=== PATIENT | female | born 1940 | race Caucasian/White ===

== ENCOUNTER 2024-10-15 06:43 | Inpatient (IN) | payer OTHER, SELFPAY ==
[2024-10-15] VITALS (13 sets, daily range): BP systolic 99–147; BP diastolic 49–102; BMI 25.8
[2024-10-15 00:42] LABS: % Basophils 0.7 % (0-2); % Eosinophils 1.8 % (0-6); % Immature Granulocytes 1.7 % (0-0.5); % Lymphocytes 12.1 % (20.5-51.1); % Monocytes 4.7 % (1.7-9.3); Absolute Basophils 0.1 10^3/uL (0-0.2); Absolute Eosinophils 0.2 10^3/uL (0-0.7); Absolute Immature Granulocytes 0.2 10^3/uL (0-0.05); Absolute Lymphocytes 1.5 10^3/uL (1.2-3.4); Absolute Monocytes 0.6 10^3/uL (0.1-0.6); Absolute Neutrophils 9.5 10^3/uL (1.4-6.5); Hematocrit 33.8 % (37.0-47.0); Hemoglobin 10.5 g/dL (12.0-16.0); Mean Corp Hgb Conc. 31.1 g/dL (33.0-37.0); Mean Corpuscular Hgb 23.5 pg (27.0-31.0); Mean Corpuscular Volume 75.8 fL (81.0-99.0); Mean Platelet Volume 10.7 fL (7.4-10.4); Nucleated Red Blood Cells % 0 %; Platelet Count 289 10^3/uL (130-400); Red Blood Cell Count 4.46 10^6/uL (4.20-5.40); Red Cell Dist. Width 15.3 % (11.5-14.5); White Blood Cell Count 12.1 10^3/uL (4.8-10.8)
[2024-10-15 00:49] LABS: ALT (SGPT) 46 U/L (0-35); AST (SGOT) 140 U/L (14-36); Albumin 4.3 g/dl (3.5-5.0); Alkaline Phosphatase 126 U/L (38-126); Blood Urea Nitrogen 20 mg/dl (7-17); Calcium 9.2 mg/dl (8.4-10.2); Carbon Dioxide 29 mmol/L (22-30); Chloride 100 mmol/L (98-107); Glucose 177 mg/dl (70-99); Potassium 3.8 mmol/L (3.5-5.1); Sodium 138 mmol/L (135-145); Total Bilirubin 0.8 mg/dl (0.2-1.3); Total Protein 6.7 g/dl (6.3-8.2); eGFR > 60.00
[2024-10-15 01:00] LABS: Troponin I < 0.012 ng/ml
[2024-10-15 01:09] LABS: Lipase > 4000 U/L (23-300)
[2024-10-15 04:48] LABS: Alcohol None Detected
--- NOTE | 2024-10-15 04:51 | ED.GENMED ---
History of Present Illness
General
Chief Complaint: Abdominal Pain
Source: patient and family (Daughter at bedside and provides most of the history.)
Exam Limitations: none
Time Seen by Provider: 10/15/24 04:26
Nursing documentation reviewed up to this point in time: agreed with
History of Present Illness
History of Present Illness:
This is an 83-year-old woman who has history of hypertension, hyperlipidemia, CAD, dementia, chronic hearing impairment, remote history of ovarian CA. 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
She has been suffering with several month history of intermittent epigastric abdominal pain and daughter states she has been taking her mother to principal systems architect, concern for cardiac issue which has not been found.
Patient complains of epigastric discomfort this evening, poor oral intake throughout the day yesterday and pain worsened tonight, associated with nausea, unrelieved with Zofran, Pepto-Bismol as well as Tums.
She has not had a fever nor chills. She has had nausea with intermittent dry heaves, no hematemesis.
No diarrhea nor constipation.
No chest pain or cough nor shortness of breath.
Past History
Past History
ED Past Medical History: HTN, Hypercholesterolemia, [place], Psychiatric (Anxiety/depression) and Other (Ovarian cancer with hysterectomy 2000)
ED Past Surgical History: None, Cardiac (12/2021) and Gynecological
Patient has exhibited threatening behavior?: No
PSI?: No
Social History
Tobacco: Non-smoker
Alcohol: Former
Drug: None
Personal:
Living: with family (Resides with her daughter)
Employment: Retired
Family History
Family History: Other (No significant)
Phy Exam
Physical Exam
Physical Exam:
GENERAL: 83-year-old woman appears her stated age, awake and alert, pleasant, moderately hard of hearing. Cooperative.
EYE: pupils equal and reactive. anicteric
NECK: Supple, nontender, no meningismus, no significant adenopathy.
ENT: oral mucosa is moist. No rhinorrhea.
CARDIAC: Regular rate and rhythm. no murmur.
LUNGS: Clear breath sounds bilaterally, no acute respiratory distress, no wheezes/rales/rhonchi
ABDOMEN: Soft, nondistended, moderate tenderness epigastric as well as right upper quadrant, no r/g, no cvat. normoactive BS.
NEUROLOGICAL: Alert and oriented x3, no focal neuro deficits.
SKIN: Warm and dry, normal color, skin intact. No rash.
MUSCULOSKELETAL: No C/C/E. peripheral pulses are full and equal b/l. No palpable tenderness.
PSYCH: Normal and appropriate interaction.
Course
Orders/Labs/Results
Orders:
Orders
10/15/24 00:11
Electrocardiogram (*1) Urgent
Reason for Study: Chest Pain
EKG- Treatment ONCE
10/15/24 00:29
Alcohol Urgent
Complete Blood Count/With Diff Urgent
Comprehensive Metabolic Panel Urgent
Lipase Urgent
Troponin I Urgent
10/15/24 04:04
Add On- LAB Urgent
Tests Added?: alochol
10/15/24 04:27
US Abdomen Complete/Upper Urgent
Comment:
Reason For Exam: upper abd pain, elevated LFT's lipase
10/15/24 04:34
0.9% Sodium Chloride 1000 ml [Nss] 1,000 ml IV 500 mls/hr
HYDROmorphone [Dilaudid] 0.25 mg IV NOW STA
Ondansetron Injectable [Zofran] 4 mg IV NOW STA
Pantoprazole [Protonix IV] 40 mg IV NOW STA
10/15/24 04:57
Metoclopramide [Reglan] 5 mg IV NOW STA
10/15/24 05:47
CefoTEtan [Cefotan] 2,000 mg IV NOW STA
Abnormal Lab Results
12/23/24
00:29
WBC 12.1 H 10^3/uL
(4.8-10.8)
Hgb 10.5 L g/dL
(12.0-16.0)
Hct 33.8 L %
(37.0-47.0)
MCV 75.8 L fL
(81.0-99.0)
MCH 23.5 L pg
(27.0-31.0)
MCHC 31.1 L g/dL
(33.0-37.0)
RDW 15.3 H %
(11.5-14.5)
MPV 10.7 H fL
(7.4-10.4)
Abs Immat Gran (auto) 0.2 H 10^3/uL
(0-0.05)
Absolute Neuts (auto) 9.5 H 10^3/uL
(1.4-6.5)
Immature Gran % 1.7 H %
(0-0.5)
Neutrophils % 79.0 H %
(42.2-75.2)
Lymphocytes % 12.1 L %
(20.5-51.1)
BUN 20 H mg/dl
(7-17)
Glucose 177 H mg/dl
(70-99)
AST 140 H U/L
(14-36)
ALT 46 H U/L
(0-35)
Lipase > 4000 H* U/L
(23-300)
10/15/24 00:29
10/15/24 00:29
Vital Signs
Initial and Last Documented VS:
Initial Vital Signs
Temp Pulse Resp BP Pulse Ox
97.4 F 67 18 147/77 98
10/15/24 00:20 10/15/24 00:20 10/15/24 00:20 10/15/24 00:20 10/15/24 00:20
Last Documented Vital Signs
Temp Pulse Resp BP Pulse Ox
97.4 F 67 18 147/77 98
10/15/24 00:20 10/15/24 00:20 10/15/24 00:20 10/15/24 00:20 10/15/24 00:20
MDM/Problems Addressed
Differential Diagnosis Includes:
Concern for acute cholecystitis, pancreatitis, gastritis, biliary colic, diverticulitis. ACS is also a consideration.
Labs are remarkable for mildly elevated LFTs and significantly elevated lipase greater than 4000 consistent with acute pancreatitis. Concern for gallstone pancreatitis.
Both patient and daughter reiterate that she has had no alcohol. No recent change in medications.
Will initiate IV fluids, IV pain medication and antiemetics.
Will check abdominal ultrasound assess for potential cholecystitis.
Will admit to hospitalist service.
Chronic conditions affecting care: HTN and CAD
*Radiology
Radiology exam reviewed: radiology read reviewed (Ultrasound shows enlarged and mildly heterogenous appearance of the pancreas consistent with acute pancreatitis. Gallbladder contains numerous small gallstones in its neck which appear nonmobile.
No significant gallbladder wall thickening nor pericholecystic fluid.)
*Pulse Oximetry
Patient hypoxic: no
*EKG
Interpreted by ED Provider?: Yes
Interpretation: abnormal
Rate: bradycardiac
Rhythm: sinus
[place]: normal axis
Interval: long QT
QRS Pattern: normal QRS
Ischemia: non-specific ST changes
*Interactive Web Developer Interpretation
Rate: bradycardiac
Interpretation: abnormal
Rhythm: sinus
*Critical Care Note
Total Time (30-74mins, 75-104mins- exclusive of procedures): Not Applicable
Update Note
Update Note:
05:45
Ultrasound shows numerous gallstones within the gallbladder, no definitive evidence on ultrasound of cholecystitis.
I suspect gallstone pancreatitis.
Will initiate IV antibiotics for coverage of potential cholecystitis.
Admit to hospitalist service.
ED Attending Note
-
Portions of this chart may have been created with voice recognition software.� Occasional wrong word or��sound alike� substitutions may have occurred due to the inherent limitations of voice recognition software.
Discharge Plan
Departure
Patient Disposition: Admit
Date of Disposition: 10/15/24
Time of Disposition: 05:00
Admit to: Med/Surg
Admit to doctor: Mavis
Presentation/result/management discussed w/ accepting MD/DO: Hospitalist
Condition: Fair
Discharge Problem:
Acute pancreatitis
Prescriptions:
No Action
duloxetine 20 MG capsule,delayed release(DR/EC)
20 mg PO DAILY
Vitamin D3
atorvastatin 40 MG tablet
40 mg PO QPM Qty: 30 3RF
clopidogrel 75 MG tablet
75 mg PO DAILY Qty: 30 3RF
pantoprazole 40 MG tablet,delayed release (DR/EC)
40 mg PO DAILY Qty: 30 3RF
losartan 25 MG tablet
25 mg PO DAILY Qty: 30 3RF
docusate sodium 100 MG capsule
100 mg PO BID Qty: 60 0RF
Rx Instructions:
over the counter for constipation.
furosemide 20 MG tablet
20 mg PO DAILY Qty: 30 3RF
metoprolol succinate 12.5 MG tablet extended release 24 hr
12.5 mg PO DAILY Qty: 30 3RF
rivaroxaban [Xarelto] 20 MG tablet
20 mg PO QPM Qty: 30 3RF
molnupiravir 200 mg capsule
800 mg PO Q12H 5 Days Qty: 40 0RF
molnupiravir 200 mg capsule
800 mg PO Q12H 5 Days Qty: 40 0RF
cefdinir 300 mg capsule
300 mg PO BID Qty: 10 1RF
molnupiravir 200 mg capsule
800 mg PO Q12H 5 Days Qty: 40 0RF
sulfamethoxazole-trimethoprim [Bactrim DS] 800-160 mg tablet
1 tab PO BID 7 Days Qty: 14 0RF
doxycycline hyclate 100 mg capsule
100 mg PO BID 7 Days Qty: 14 0RF
mupirocin 2 % ointment
1 applic topical TID 7 Days Qty: 22 0RF
Referrals:
Michael Hernandes MD [Family Provider] -
Interventions
Interventions:
*Risk Screen - Suicide Last Done: 10/15/24 00:17
*General Assessment Last Done: 10/15/24 03:58
*ED COVID-19 Vaccine History Last Done: 10/15/24 00:17
Discharge Date and Time
Print Language: PORTUGUESE
[2024-10-15] MEDS: PROTONIX IV 40 MG IV (05:38)
[2024-10-15] MEDS: DILAUDID 0.25 MG IV (05:38)
[2024-10-15] MEDS: REGLAN 5 MG IV (05:38)
[2024-10-15] MEDS: NSS 1000 IV (05:45)
--- NOTE | 2024-10-15 06:11 | HPS.HSE ---
Family Physician
-
Family Physician: Michael Hernandes MD
Chief Complaint
-
Epigastric abdominal pain
History of Present Illness
This is an 83-year-old female who has a past medical history significant for Alzheimer's dementia, ischemic cardiomyopathy status post LV thrombus, hypertension, hyperlipidemia, presents to the emergency department with worsening epigastric
abdominal pain which has been intermittent for some time now.
She reports several month history of intermittent epigastric abdominal pain, daughter reports that the patient had been taken to the reefer truck driver to evaluate for cardiac issues which has been negative. She reports worsening epigastric discomfort
this evening decreased oral intake throughout the day. The pain is associated with nausea. Unrelieved with Zofran or Pepto-Bismol. She denies any fevers or chills. She denies any melena or hematochezia. She has not had any diarrhea,
lightheadedness or dizziness. She denies any chest pain or shortness of breath.
On arrival in the emergency department she was hemodynamically stable with a blood pressure of 144/76 pulse of 98 and oxygen saturation of 90% on room air. She is afebrile. She had leukocytosis of 12,000 but otherwise hemoglobin and platelet
counts were similar to prior and stable. Electrolytes BUN/creatinine were within the normal range. LFTs shows a mild elevation in ALT and AST. T. bili Kurtis and alk phos were negative. Lipase was elevated over 4000.
Abdominal ultrasound showed enlarged and mildly heterogeneous echogenic appearance of the pancreas consistent with acute pancreatitis, there were numerous small gallstones in the gallbladder neck which appeared normal bowel. No significant
gallbladder wall thickening or pericholecystic fluid. Negative sonographic Chavez sign. CBD measures 5.5 mm
Medical History
Past Medical History
Past Medical History: Reports CAD, Cancer (Ovarian cancer status post hysterectomy), CHF, HTN and Hypercholesterolemia
Additional Past Medical History:
Status post LV thrombus on anticoagulation
Past Surgical History: Reports Gynocological
Social History
Tobacco: Non-smoker
Alcohol: Former
Drug: None
Personal:
Living: With Family
Employment: Retired
Family History
Family History: Not pertinent
Allergies / Home Medications
Allergies reflects when Allergies were last updated in [facility].
Home Medications with original date entered in [facility]
Allergy/Medication List:
Allergies
Allergy/AdvReac Type Severity Reaction Status Date / Time
No Known Allergies Allergy Verified 10/19/23 10:50
Home Medications
Vitamin D3 Supplement 01/17/22
duloxetine 30 mg capsule,delayed release 30 mg PO DAILY Mental Health/Anxiety 01/17/22
atorvastatin 20 mg tablet 20 mg PO QPM #30 tabs 01/19/22
docusate sodium 100 mg capsule 100 mg PO BID #60 caps 01/19/22
furosemide 20 mg tablet 20 mg PO DAILY #30 tabs 01/19/22
losartan 25 mg tablet 25 mg PO DAILY #30 tabs 01/19/22
metoprolol succinate 25 mg tablet,extended release 24 hr 12.5 mg (1/2 x 25 mg) PO DAILY ##30 01/19/22
pantoprazole 40 mg tablet,delayed release 40 mg PO DAILY #30 tabs 01/19/22
rivaroxaban 20 mg tablet (Xarelto) 20 mg PO QPM #30 tabs 01/19/22
Review of Systems
-
Unable to obtain full review of systems at this time due to: Dementia
History Source: Family
Constitutional: Reports No Symptoms
Respiratory: Reports No Symptoms
Cardiac: Reports No Symptoms
Abdomen/GI: Reports Abdominal Pain and Nausea
: Reports No Symptoms
Musculoskeletal: Reports No Symptoms
Skin: Reports No Symptoms
Neurological: Reports No Symptoms
Endocrine: Reports No Symptoms
Hematologic/Lymphatic: Reports No Symptoms
Psych: Reports No Symptoms
Physical Exam
Vital Signs
Vital Signs
Temp Pulse Resp BP Pulse Ox
97.4 F 98 24 144/76 93
10/15/24 00:20 10/15/24 04:16 10/15/24 04:16 10/15/24 05:04 10/15/24 05:05
Physical Exam
General: Well Developed, Well Nourished and Comfortable
HEENT: NormoCephalic, Anicteric, Moist mucous membranes and Atraumatic
Respiratory: Clear
Cardiac: S1/S2 and Regular Rhythm
Breast: Deferred by me
GI: Soft, Non Distended, Normal Bowel Sounds and Tender
Rectal: Deferred by Provider
Genito-urinary: Deferred by me
Musculoskeletal: No Clubbing, No Cyanosis and No Edema
Skin: Warm
Neuro: Awake, Alert and Oriented (oriented to person )
Hematologic/Lymphatic: No Lymphadenopathy
Psych: Apparent Dementia
Laboratory Results
-
10/15/24 00:29
10/15/24 00:29
Laboratory Results
Total Bilirubin 0.8 mg/dl (0.2-1.3) 10/15/24 00:29
AST 140 U/L (14-36) H 10/15/24 00:29
ALT 46 U/L (0-35) H 10/15/24 00:29
Alkaline Phosphatase 126 U/L (38-126) 10/15/24 00:29
Troponin I < 0.012 ng/ml 10/15/24 00:29
Lipase > 4000 U/L (23-300) H* 10/15/24 00:29
Data Reviewed
-
Ultrasound: Report Reviewed by me
Lab Data: Labs Reviewed by me
Old Records: Reviewed
Impression/Plan
-
IMPRESSION:
83-year-old who has a past medical history significant for ischemic adenopathy, EF of around 50% status post LV thrombus sign on anticoagulation indefinitely will presents to the emergency department with intermittent colicky abdominal pain that
developed into a more severe epigastric pain with nausea and radiation to the back today. She is found to have acute pancreatitis with a lipase of over 4000. A right upper quadrant ultrasound shows numerous small stones in the gallbladder
localized was the neck of the gallbladder. The gallbladder itself does not appear inflamed and has no signs of acute cholecystitis. No gallstones in the biliary duct and CBD was 5 mm. Mild transaminitis. Normal bilirubin.
PLAN:
1. Pancreatitis - Gall stone pancreatitis. No h/o ETOH recently
- admit to med/surg
- npo for now
- gentle fluids, pain control and antimetics
- trend lfts to eval for continued biliary obstruction
- no abx as no cholecystitis or cholangitis
- GI consultation. Patient would require surgery for definitive tx but cannot rule out cbd stones now. Appreciate GI input
- General surgery consult.
2. CHF - Patient with improved EF on last echo. No signs of volume overload
- hold daily lasix for no w
- continue metoprolol and losartan
- monitor daily weights
3. LV thrombus - appears result on most recent echo but requires indefinite prophylaxis
- hold Xarelto pending surgical evaluation
- asa 81 for now
4. Dementia - No acute delirium
- continue memantine
DVT PPX - hep sq pending surgical evaluation
Code status - full code per daughter who is care technician
[2024-10-15] MEDS: CEFOTAN 2000 MG IV (06:14)
[2024-10-15] MEDS: XANAX 0.25 MG PO (06:53)
[2024-10-15] MEDS: NAMENDA 10 MG PO (08:43)
[2024-10-15] MEDS: LOW STRENGTH ASPIRIN 81 MG PO (08:46)
--- NOTE | 2024-10-15 08:54 | PHANOTE ---
med rec note- patient unable to answer question, very confused and does not know where she is. called daughter on file and she gave me med list. she also informed me that on 10/10/24 was suppose to stop aspirin 81mg daily and Lasix . and to start
Plavix 75mg daily but daughter has not made those changes to patient meds, daughter said she was going to wait a week
[2024-10-15] MEDS: LR 1000 IV (09:00)
--- NOTE | 2024-10-15 09:07 | W.PN.HOSP.TC ---
Addendum entered and electronically signed by Seng Cote MD 10/15/24 09:34:
Chronic microcytic anemia.
Hemoglobin 10.5
Check iron levels.
Original Note:
Today's Communication/Plan
-
See plan
Assessment / Plan
Assessment / Plan
Impression:
Presentation with abdominal pain.
Acute gallstone pancreatitis.
Other conditions:
CAD with history of non-STEMI and PCI to LAD 12/2021
Ischemic cardiomyopathy with recovered LVEF
Essential hypertension.
Dyslipidemia
Nonsustained ventricular tachycardia.
Dementia Alzheimer type
Anxiety
Plan:
Presentation with abdominal pain.
Suspect acute gallstone pancreatitis.
Afebrile with benign abdominal examination.
Ultrasound of the abdomen: Cholelithiasis without convincing sonographic evidence of acute cholecystitis. Nonspecific sonographic appearance of the pancreas which could reflect underlying acute pancreatitis.
Normal bilirubin with mild elevation of transaminases
N.p.o. open
IV fluids with monitoring volume status closely given prior history of cardiomyopathy.
GI/general surgery consultation
Require additional imaging CT scan versus MRI.
So far no clear evidence of choledocholithiasis or acute cholecystitis. Received dose of Cefotan while in ED. Monitor closely off antibiotics, low threshold if any signs of infection.
Continue IV PPI
Adjust analgesia: Hydromorphone 0.25 mg IV every 3 hours as needed.
CAD.
History of non-STEMI with PCI to LAD.
Prior history of LV thrombus
Ischemic cardiomyopathy with recovered EF.
History of nonsustained ventricular tachycardia.
Hypertension/dyslipidemia
Echo 07/15 with LVEF 55-60% with residual hypokinesis in the distal LAD/diagonal territory with resolution of thrombus
Continue Toprol, Cozaar, statin.
Hold Xarelto acutely in anticipation of surgical intervention
Continue aspirin while off Xarelto. Patient is currently not on Plavix
Dementia likely Alzheimer type
Anxiety
Continue memantine, duloxetine and Xanax
Full code
DVT prophylaxis subcu hep
Anticipated Discharge: > 48 hours
Subjective/Interval History
-
Date of Service: October 15, 2024
Objective Data
-
Labs:
Laboratory Results
10/15/24
00:29
WBC 12.1 H
Hgb 10.5 L
Hct 33.8 L
Plt Count 289
Sodium 138
Potassium 3.8
Chloride 100
Carbon Dioxide 29
BUN 20 H
Creatinine 0.6
Glucose 177 H
Calcium 9.2
Total Bilirubin 0.8
AST 140 H
ALT 46 H
Alkaline Phosphatase 126
Vital Signs:
Vital Signs
Temp Pulse Resp BP Pulse Ox
97.4 F 98 24 144/76 93
10/15/24 00:20 10/15/24 04:16 10/15/24 04:16 10/15/24 05:04 10/15/24 05:05
Physical Exam
-
General: Well Developed and No Apparent Distress
HEENT: Normocephalic, Atraumatic and Moist Mucous Membranes
Respiratory: Clear to Auscultation
Cardiac: Regular Rhythm and S1/S2; Negative Murmur, Rub or Gallop
GI: Soft, Nontender, Nondistended and Normal Bowel Sounds; Negative Organomegaly
Rectal: Deferred by Provider
Musculoskeletal: No Clubbing, No Cyanosis and No Edema
Skin: Negative Rash
Neuro: Nonfocal/Grossly Intact
--- NOTE | 2024-10-15 09:17 | CON.GS ---
Addendum entered and electronically signed by David Hwang MD 10/15/24 09:39:
Patient seen and examined. Agree with assessment plan as documented below.
Patient with severe dementia and no meaningful clinical information gathered on her encounter. Call placed to her primary contact with no response, VM left.
Ms. Cavanaugh is an 83 yo F with a documented history of CAD with WY, HFrEF, ischemic CM and LV Thrombus (on Plavix and Xarelto), and ovarian cancer s/p CHHAYA. She has had a several month history of intermittent epigastric abdominal pain, daughter reports
that the patient had been taken to the [facility] to evaluate for cardiac issues which have been negative for new problems. She had worsening epigastric discomfort yesterday with decreased oral intake throughout the day associated with nausea
unrelieved with Zofran or Pepto-Bismol. On exam, the upper abdomen is tender. She is unable to communicate much other than she is worried about the person who was just in her bathroom.
Gen: NAD, oriented to person not place, time or situation
Abd: soft, tender in epigastrium, ND, no diffuse peritonitis
Labs and imaging were reviewed.
Patient is an 83 yo F p/w pancreatitis likely of gallstone in origin
No meaningful conversation with that patient or family at this time. No plans or indication for cholecystectomy at this time. Will need to discuss role of cholecystectomy as a relates to preventing future episodes of cholecystitis,
choledocholithiasis, or pancreatitis. Continue with medical management of pancreatitis with IVF and pain medication, okay for clears from a surgical perspective. GI consult noted.
-- No plans or indication for cholecystectomy at this time, need to discuss role of cholecystectomy as a relates to preventing future episodes of cholecystitis, choledocholithiasis, or pancreatitis with family
-- GI consult noted, continue with medical management of pancreatitis with IVF and pain medication
Original Note:
Consultation
-
Date/Time Consultation Requested: 10/15/24 3514
Requesting Provider: Cherelle Elizondo
Reason for Consultation: pancreatitis-likely gallstone
Medical History
-
Chief Complaint: Abdominal pain
History of Present Illness:
Ms Cavanaugh is an 83 yo female with a h/o Alzheimer's dz. She is unable to provide history with majority of history obtained from medical record as family was unable to be reached at this time. She does have a history of CAD with WY, HFrEF, ischemic CM
and LV Thrombus on plavix and Xarelto with prior surgical history of CHHAYA for management of ovarian CA. She has had a several month history of intermittent epigastric abdominal pain, daughter reports that the patient had been taken to the
core cutter and reamer to evaluate for cardiac issues which have been negative for new problems. She had worsening epigastric discomfort yesterday with decreased oral intake throughout the day associated with nausea unrelieved with Zofran or Pepto-Bismol. On
exam, the upper abdomen is tender. She is unable to communicate much other than she is worried about the person who was just in her bathroom and therefore, ROS was unable to be obtained.
Past Medical History
Past Medical History: CAD, Cancer (Ovarian ca 2006), CHF, GERD, HTN, Hypercholesterolemia, WY (ischemic CM), Psychiatric (Alzheimer's, anxiety) and Other (LV thrombus on AC)
Past Surgical History: Gynecological (CHHAYA)
Social History
Tobacco: Non-Smoker
Alcohol: None
Family History
Family History: Reviewed & Not Pertinent
Allergies / Home Medications
Allergy/AdvReac Type Severity Reaction Status Date / Time
No Known Allergies Allergy Verified 10/19/23 10:50
�Medication �Instructions �Recorded �Confirmed �Type
rivaroxaban 20 mg tablet (Xarelto) 20 mg PO QPM #30 tabs 01/19/22 10/15/24 Rx
albuterol sulfate 90 mcg/actuation 2 puff inhalation R QIDPRN PRN sob 10/15/24 10/15/24 History
aerosol inhaler
alprazolam 0.5 mg tablet (Xanax) 0.5 mg PO HS 10/15/24 10/15/24 History
aspirin 81 mg tablet,delayed 81 mg PO DAILY 10/15/24 10/15/24 History
release
atorvastatin 40 mg tablet (Lipitor) 20 mg PO QPM 10/15/24 10/15/24 History
cholecalciferol (vitamin D3) 25 25 mcg PO DAILY 10/15/24 10/15/24 History
mcg (1,000 unit) tablet (Vitamin
D3)
duloxetine 40 mg capsule,delayed 40 mg PO DAILY 10/15/24 10/15/24 History
release
furosemide 20 mg tablet (Lasix) 20 mg PO DAILY 10/15/24 10/15/24 History
losartan 25 mg tablet 25 mg PO DAILY 10/15/24 10/15/24 History
memantine 10 mg tablet 10 mg PO HS 10/15/24 10/15/24 History
metoprolol succinate 25 mg 25 mg PO DAILY 10/15/24 10/15/24 History
tablet,extended release 24 hr
(Toprol XL)
pantoprazole 40 mg tablet,delayed 40 mg PO DAILY 10/15/24 10/15/24 History
release
Review of Systems
-
Unable to obtain full review of systems at this time due to: Dementia
History Source: Patient
A 10 point review of systems was completed, and was negative except as per HPI.
Physical Exam
Vital Signs
Temp Pulse Resp BP Pulse Ox
98.1 F 98 24 144/76 93
10/15/24 09:14 10/15/24 04:16 10/15/24 04:16 10/15/24 05:04 10/15/24 05:05
10/14/24 10/15/24 10/16/24
06:59 06:59 06:59
Actual Weight 64 kg
Body Mass Index (BMI) 25.8
Lab Results
10/15/24 00:29
10/15/24 00:29
WBC 12.1 10^3/uL (4.8-10.8) H 10/15/24 00:29
Hgb 10.5 g/dL (12.0-16.0) L 10/15/24:
Hct 33.8 % (37.0-47.0) L 10/15/24:
Plt Count 289 10^3/uL (130-400) 10/15/24:29
Abs Immat Gran (auto) 0.2 10^3/uL (0-0.05) H 10/15/24:
Neutrophils % 79.0 % (42.2-75.2) H 10/15/24 00:
Physical Exam
General: Well Developed and Well Nourished
HEENT: Moist Mucous Membranes
Respiratory: Non Labored Respirations
GI: Soft, Non Distended and Tender (upper abdomen)
Skin: Warm and Dry
Neuro: Awake, Alert and AO x 3
Psych: Calm
Data Reviewed
-
Ultrasound: Image Personally Visualized and interpreted, Report Reviewed by me, Discussed with Physician and Discussed with Patient
Labs: Labs Reviewed by me, Discussed with Physician and Discussed with Patient
Old Records: Reviewed
Assessment / Plan
-
Ms Cavanaugh is an 83 yo female with a h/o Alzheimer's dz, CAD with WY, HFrEF, ischemic CM and LV Thrombus on plavix and Xarelto with prior surgical history of CHHAYA for management of ovarian CA who presents with worsening epigastric abdominal pain and
nausea. Lipase markedly elevated (>4k) with mild transaminitis noted. Leukocytosis is present. Gallstones present on US and near the gallbladder neck but without evidence of acute cholecystitis. Suspect gallstone mediated pancreatitis. AFVSS.
Patient is overall a poor historian secondary to dementia, family unable to be reached at this time with VM left to discuss plan of care, risk of surgery, etc.
--GI consulted to follow
--Hold Plavix/Xarelto
[2024-10-15 10:22] LABS: Iron 37 ug/dl (37-170)
--- NOTE | 2024-10-15 10:30 | CON.GI ---
Addendum entered and electronically signed by Kira Eli MD 10/15/24 13:51:
I saw and examined the patient.
The PLATE GRINDER or PA's note was reviewed and I agree with the note.
Comment: Nelia is a 83-year-old female with history of ovarian cancer status post hysterectomy/oophorectomy, history of dementia, history of CAD status post DE and left ventricular thrombus currently on Xarelto, history of CHF who was brought
into the emergency room by daughter for chronic ongoing abdominal pain which got severe last night. This is going on at least for the last 1 year, epigastric/mid abdominal pain which would be better with Xanax/nitroglycerin but worsen last night.
In the ER, mild leukocytosis, CBC with microcytic anemia with hemoglobin of 10.5 and low iron, elevated transaminases and lipase suggesting possible gallstone pancreatitis with abdominal ultrasound confirming gallstones. No evidence of acute
cholecystitis as per imaging or bile duct dilation.
As per daughter, no nausea, vomiting, heartburn, constipation, diarrhea, blood or black stool. No weight loss. No NSAID use. Patient has been living with daughter for 7 years, no EGD and colonoscopy in that timeframe and daughter is not sure if
patient ever had endoscopy evaluation. No family history of colon cancer.
-Acute pancreatitis likely related to gallstones.
Symptoms have been going on the last 1 year on and off but no pancreatitis prior to this.
No alcohol use.
CT scan abdomen in 2022 showing possible cholelithiasis.
Given suspicion high for gallstone pancreatitis, will check CT scan of the abdomen and pelvis with oral and IV contrast. Discussed with patient's daughter that MRI would be the ideal test but as per daughter, patient cannot tolerate lying down and
MRI.
N.p.o., currently on Ringer lactate at 75 cc an hour given history of congestive heart failure
Monitor electrolytes and replete. Check CRP.
If pain is better, okay to advance to clear liquid diet and eventually low-fat diet.
Will follow-up on imaging first.
-Iron deficiency anemia without any overt GI bleeding.
Previous endoscopy evaluation and no history of GI bleeding in the past.
IV iron for now and will follow-up. Monitor bowel movements.
Original Note:
Consultation
-
Date/Time Consultation Requested: 10/15/24 0715
Date/Time Consultation Performed: 10/15/24 1030
Requesting Provider: ROBLES Hale
Performing Provider: ROBLES James, Kira Eli MD
Reason for Consultation: abdominal pain
Medical History
Chief Complaint / HPI
Chief Complaint: abdominal pain
History of Present Illness:
Pt is an 83yo with hx ovarian CA with prior hysterectomy, dementia, prior ETOH use, HTN, cardiac stents with prior DE and noted left ventricular thrombus on Xarelto ,CHF, anxiety/depression, MRSA presents with abdominal pain. Pt was noted with
intermittent abdominal/chest pain for months. Pt with recent neg cardiac eval with hx prior DE and stenting with recent visit with Dr. Montes. On admission noted with WBC 12,100, hbg 10.5, bili 0.8, AST 140, ALT 46, alk phos 126 and lipase
>4000. US completed with cholelithiasis without acute cholecystis and non specific changes of pancreas could reflect pancreatitis. also noted no duct dilatation visualized CBD 6cm , stone in GB next and distended stomach. Pt unable to do MRI per
family.
At this time pt with chest/epigastric pain and nausea but denies dysphagia, GERD, abdominal pain, diarrhea, constipation, or black stools. No change in stool or urine color.
Past Medical History
Past Medical History: Arrhythmias (NSVT, LV thrombus on Xarelto ), Cancer (ovarian CA ), CHF, HTN, Hypercholesterolemia, DE (with left venticular thrombus ), Psychiatric (anxiety/depression) and Other (dementia, hearing impairment, prior ETOH use,
MRSA)
Past Surgical History: Cardiac (stent 2021 ) and Gynecological ([id number] )
Social History
Tobacco: Non-Smoker
Alcohol: Former (quit 7 years ago)
Drug: None
Living: With Family
Employment: Retired
Family History
Family History: Other (son with PUD no family hx colon CA or polyps)
Allergies / Home Medications
Allergy/AdvReac Type Severity Reaction Status Date / Time
No Known Allergies Allergy Verified 10/19/23 10:50
�Medication �Instructions �Recorded
rivaroxaban 20 mg tablet (Xarelto) 20 mg PO QPM #30 tabs 01/19/22
albuterol sulfate 90 mcg/actuation 2 puff inhalation R QIDPRN PRN sob 10/15/24
aerosol inhaler
alprazolam 0.5 mg tablet (Xanax) 0.5 mg PO HS anxiety 10/15/24
aspirin 81 mg tablet,delayed 81 mg PO DAILY Blood Clot 10/15/24
release Prevention/Tx
atorvastatin 40 mg tablet (Lipitor) 20 mg PO QPM High Cholesterol 10/15/24
cholecalciferol (vitamin D3) 25 25 mcg PO DAILY Supplement 10/15/24
mcg (1,000 unit) tablet (Vitamin
D3)
duloxetine 40 mg capsule,delayed 40 mg PO DAILY depression/anxiety 10/15/24
release
furosemide 20 mg tablet (Lasix) 20 mg PO DAILY Fluid 10/15/24
Retention/Swelling
losartan 25 mg tablet 25 mg PO DAILY Blood Pressure 10/15/24
memantine 10 mg tablet 10 mg PO HS cognition/memory 10/15/24
metoprolol succinate 25 mg 25 mg PO DAILY Blood Pressure 10/15/24
tablet,extended release 24 hr
(Toprol XL)
pantoprazole 40 mg tablet,delayed 40 mg PO DAILY Gastrointestinal 10/15/24
release Issue
Review of Systems
-
Unable to obtain full review of systems at this time due to: Dementia
History Source: Patient and Family
Constitutional: Reports No Symptoms
EENT: Reports No Symptoms
Respiratory: Reports No Symptoms
Cardiac: Reports Chest Pain
Abdomen/GI: Reports Abdominal Pain and Nausea
: Reports No Symptoms
Musculoskeletal: Reports No Symptoms
Skin: Reports No Symptoms
Neurological: Reports Weakness
Endocrine: Reports No Symptoms
Hematologic/Lymphatic: Reports No Symptoms
Vital Signs
Temp Pulse Resp BP Pulse Ox
98.1 F 98 24 144/76 93
10/15/24 09:14 10/15/24 04:16 10/15/24 04:16 10/15/24 05:04 10/15/24 05:05
Physical Exam
Exam
General: Well Developed, Well Nourished and Other (still with some pain )
HEENT: Normocephalic and Anicteric
Respiratory: Clear
Cardiac: Regular Rhythm
GI: Soft, Non Distended and Tender (epigastric pain )
Musculoskeletal: No Clubbing and No Cyanosis
Skin: Warm and Dry
Neuro: Awake, Alert and Other (confused )
Psych: Calm
Results
WBC 12.1 10^3/uL (4.8-10.8) H 10/15/24 00:29
Hgb 10.5 g/dL (12.0-16.0) L 10/15/24 00:29
Hct 33.8 % (37.0-47.0) L 10/15/24 00:29
MCV 75.8 fL (81.0-99.0) L 10/15/24 00:29
Plt Count 289 10^3/uL (130-400) 10/15/24 00:29
Absolute Neuts (auto) 9.5 10^3/uL (1.4-6.5) H 10/15/24 00:29
Sodium 138 mmol/L (135-145) 10/15/24 00:29
Potassium 3.8 mmol/L (3.5-5.1) 10/15/24 00:29
Chloride 100 mmol/L (98-107) 10/15/24 00:29
Carbon Dioxide 29 mmol/L (22-30) 10/15/24 00:29
BUN 20 mg/dl (7-17) H 10/15/24 00:29
Creatinine 0.6 mg/dL (0.6-1.0) 10/15/24 00:
Calcium 9.2 mg/dl (8.4-10.2) 10/15/24 00:
Total Bilirubin 0.8 mg/dl (0.2-1.3) 10/15/24 00:
AST 140 U/L (14-36) H 10/15/24 00:
ALT 46 U/L (0-35) H 10/15/24 00:
Alkaline Phosphatase 126 U/L (38-126) 10/15/24:
Lipase > 4000 U/L (23-300) H* 10/15/24 00:
Diagnostic Image Results:
10/15/24 US Abdomen Complete/Upper
1. Cholelithiasis without convincing sonographic evidence for acute cholecystitis.
2. Nonspecific sonographic appearance of the pancreas which could reflect underlying acute pancreatitis.
Prior GI Procedures:
EGD: none per family recall
Colonoscopy: none per family recall
Assessment / Plan
-
Pt is an 83yo with hx ovarian CA with prior hysterectomy, dementia, prior ETOH use, HTN, cardiac stents with prior DE and noted left ventricular thrombus ,CHF, anxiety/depression, MRSA presents with abdominal pain. Pt was noted with intermittent
abdominal/chest pain for months. Pt with neg cardiac eval with hx prior DE and stenting with recent visit with Dr. Montes. On admission noted with WBC 12,100, hbg 10.5, bili 0.8, AST 140, ALT 46, alk phos 126 and lipase >4000. US completed with
cholelithiasis without acute cholecystis and non specific changes of pancreas could reflect pancreatitis. also noted no duct dilatation visualized CBD 6cm , stone in GB next and distended stomach. Per family unable to do MRI with dementia and
agitation.
-pancreatitis likely gallstone related
-intermittent abdominal/chest pain for months
-leukocytosis
-cholelithiasis
-distended stomach per US
-anemia- microcytic iron deficiency
-hx LV thrombus on chronic Xarelto
-CHF
other med problems:
-cardiac stent
-prior ETOH use
-ovarian CA s/p hysterectomy
-dementia
-HTN
-anxiety/depression
-hx MRSA
PLAN:
etiology of pancreatitis related to gallstone with noted GB neck stone vs other
s/p US as noted- per family pt unable to MRI with dementia and ability to lay still--will proceed with CT A/p with IV and oral contrast other options are EUS vs IOC if Ct not helpful
cont Xarelto wash out last dose 10/14 PM
NPO
IVF s/p bolus in ER currently LR at 75ml/hr -- lower rate with hx CHF
pain control
family updated at bedside
add CRP
with anemia no hx EGD/colon that family was aware of-- will add IV iron
will follow
-
-
Thank you for consultation and allowing me to participate in the patient's care. Please call the broadcast correspondent GI physician during the after hours with any questions or concerns.
[2024-10-15 10:33] LABS: Percent Saturation 8 % (20-50); Total Iron Binding Capacity 457 ug/dl (265-497)
[2024-10-15] MEDS: HEPARIN SC (10:34)
[2024-10-15] MEDS: CYMBALTA DELAYED RELEASE 20 MG PO (10:34)
[2024-10-15] MEDS: COZAAR PO (10:39)
[2024-10-15] MEDS: TOPROL XL PO (10:39)
[2024-10-15] MEDS: XANAX 0.5 MG PO ×2 (11:12→21:58)
[2024-10-15 11:49] LABS: Ferritin 7.9 ng/ml (11.1-264.0)
[2024-10-15] MEDS: OMNIPAQUE 50 ML PO (12:06)
[2024-10-15 12:43] LABS: C-Reactive Protein < 5.00 mg/L (0.0-10.00)
[2024-10-15] MEDS: FERRLECIT 110 MG IV (16:08)
[2024-10-15] MEDS: LIPITOR 20 MG PO (18:49)
[2024-10-15] MEDS: HEPARIN 5000 UNITS SC (21:58)
[2024-10-16] VITALS (20 sets, daily range): BP systolic 93–149; BP diastolic 35–91; BMI 28.3; BMI 25.0
[2024-10-16] MEDS: LR 1000 IV
[2024-10-16 05:48] LABS: % Basophils 0.6 % (0-2); % Eosinophils 2.9 % (0-6); % Immature Granulocytes 0.3 % (0-0.5); % Lymphocytes 20.7 % (20.5-51.1); % Monocytes 8.9 % (1.7-9.3); % Neutrophils 66.6 % (42.2-75.2); Absolute Eosinophils 0.2 10^3/uL (0-0.7); Absolute Lymphocytes 1.3 10^3/uL (1.2-3.4); Absolute Monocytes 0.6 10^3/uL (0.1-0.6); Absolute Neutrophils 4.2 10^3/uL (1.4-6.5); Hematocrit 27.2 % (37.0-47.0); Hemoglobin 7.9 g/dL (12.0-16.0); Mean Corpuscular Volume 79.3 fL (81.0-99.0); Mean Platelet Volume 11.2 fL (7.4-10.4); Nucleated Red Blood Cells % 0 %; Platelet Count 184 10^3/uL (130-400); Red Blood Cell Count 3.43 10^6/uL (4.20-5.40); Red Cell Dist. Width 15.9 % (11.5-14.5); White Blood Cell Count 6.3 10^3/uL (4.8-10.8)
[2024-10-16 06:04] LABS: ALT (SGPT) 207 U/L (0-35); AST (SGOT) 151 U/L (14-36); Albumin 2.9 g/dl (3.5-5.0); Alkaline Phosphatase 100 U/L (38-126); Blood Urea Nitrogen 13 mg/dl (7-17); Calcium 8.1 mg/dl (8.4-10.2); Carbon Dioxide 28 mmol/L (22-30); Chloride 104 mmol/L (98-107); Direct Bilirubin 0.1 mg/dl (0.0-0.4); Estimated Creatinine Clearance 50 ml/min; Glucose 88 mg/dl (70-99); Potassium 3.6 mmol/L (3.5-5.1); Sodium 136 mmol/L (135-145); Total Bilirubin 0.5 mg/dl (0.2-1.3); Total Protein 5.1 g/dl (6.3-8.2); eGFR > 60.00
--- NOTE | 2024-10-16 08:35 | EDRN ---
Dr. Cote was in to see pt.
[2024-10-16] MEDS: COZAAR PO (08:37)
[2024-10-16] MEDS: CYMBALTA DELAYED RELEASE 20 MG PO (08:37)
[2024-10-16] MEDS: HEPARIN 5000 UNITS SC ×2 (08:38→22:01)
[2024-10-16] MEDS: LOW STRENGTH ASPIRIN 81 MG PO (08:39)
[2024-10-16] MEDS: NAMENDA 10 MG PO (08:39)
[2024-10-16] MEDS: TOPROL XL PO (08:40)
[2024-10-16] MEDS: COZAAR 25 MG PO (08:44)
[2024-10-16] MEDS: TOPROL XL 12.5 MG PO (08:45)
[2024-10-16 09:06] LABS: Lipase 3436 U/L (23-300)
--- NOTE | 2024-10-16 09:31 | EDRN ---
This RN TT'd Dr. Cote about pt's HGB 7.9 and Lipase 3436 at this time.
--- NOTE | 2024-10-16 11:41 | W.PN.GS2 ---
Today's Communication / Plan
-
CLD
Assessment / Plan
-
Ms Cavanaugh is an 83 yo female with a h/o Alzheimer's dz, CAD with [place], HFrEF, ischemic CM and LV Thrombus on plavix and Xarelto with prior surgical history of CHHAYA for management of ovarian CA who presents with worsening epigastric abdominal pain and
nausea. Lipase markedly elevated (>4k) with mild transaminitis noted. Leukocytosis is present. Gallstones present on US and near the gallbladder neck but without evidence of acute cholecystitis. Suspect gallstone mediated pancreatitis.
Patient is overall a poor historian secondary to dementia, family present at bedside and update provided.
--OK for CLD
--Hold Plavix/Xarelto
--Serial exams
--If clinical deterioration would pursue HIDA
--will follow
Subjective Data
-
Date of Service: October 16, 2024
No complaints, denies pain
Objective Data
-
Intake and Output
10/15/24 10/16/24 10/17/24
06:59 06:59 06:59
Intake Total 1200 / 1200
Output Total 950 / 950
Balance 250 / 250
Intake:
IV fluids (Total) 1200 / 1200
Output:
Straight cath output 950 / 950
Vital Signs
Temp Pulse Resp BP Pulse Ox
98.2 F 68 19 137/65 93
10/16/24 08:34 10/16/24 11:00 10/15/24 14:00 10/16/24 11:00 10/16/24 06:25
Lab Results
10/16/24 05:18
10/16/24 05:18
Calcium 8.1 mg/dl (8.4-10.2) L 10/16/24 05:18
Total Bilirubin 0.5 mg/dl (0.2-1.3) 10/16/24 05:18
Direct Bilirubin 0.1 mg/dl (0.0-0.4) 10/16/24 05:18
AST 151 U/L (14-36) H 10/16/24 05:18
ALT 207 U/L (0-35) H 10/16/24 05:18
Alkaline Phosphatase 100 U/L (38-126) 10/16/24 05:18
Total Protein 5.1 g/dl (6.3-8.2) L D 10/16/24 05:18
Albumin 2.9 g/dl (3.5-5.0) L 10/16/24 05:18
Physical Exam
-
Gen: NAD
Abd: soft, ttp to epigastrium and RUQ
--- NOTE | 2024-10-16 11:41 | EDRN ---
Dr. Alanis in to see pt at this time.
--- NOTE | 2024-10-16 12:00 | W.PN.GI.CBS2 ---
Today's Communication / Plan
-
clear liquids
MRI with sedation prior if able to tolerate
trend labs
Assessment / Plan
-
Pt is an 83yo with hx ovarian CA with prior hysterectomy, dementia, prior ETOH use, HTN, cardiac stents with prior NM and noted left ventricular thrombus ,CHF, anxiety/depression, MRSA presents with abdominal pain. Pt was noted with intermittent
abdominal/chest pain for months. Pt with neg cardiac eval with hx prior NM and stenting with recent visit with Dr. Montes. On admission noted with WBC 12,100, hbg 10.5, bili 0.8, AST 140, ALT 46, alk phos 126 and lipase >4000. US completed with
cholelithiasis without acute cholecystis and non specific changes of pancreas could reflect pancreatitis. also noted no duct dilatation visualized CBD 6cm , stone in GB next and distended stomach. Per family unable to do MRI with dementia and
agitation.
-pancreatitis likely gallstone related
-intermittent abdominal/chest pain for months
-leukocytosis
-cholelithiasis
-distended stomach per US
-anemia- microcytic iron deficiency
-hx LV thrombus on chronic Xarelto
-CHF
other med problems:
-cardiac stent
-prior ETOH use
-ovarian CA s/p hysterectomy
-dementia
-HTN
-anxiety/depression
-hx MRSA
PLAN:
etiology of pancreatitis related to gallstone with noted GB neck stone vs other
CT shows mild pancreatitis and also mild pericholecystic edema cannot rule out acute cholecystitis
Clinically she is afebrile, but if pain worsens or spikes a fever will start antibiotics and also get HIDA scan
Noted input from surgery will defer timing of cholecystectomy (if family agreeable) to surgery
cont Xarelto wash out last dose 10/14 PM
Will start clear liquids
Continue IV fluids with lactated Ringer's as tolerated given her history of CHF- gentle hydration
Will get MRI if patient able to tolerate discussed at length with her daughter at bedside and also son Epifanio Cavanaugh over the telephone patient may be able to get the MRI if sedated prior so will give 1 mg of Ativan prior to MRI
Also has significant iron deficiency anemia and drop in hemoglobin most likely related to IV hydration. Currently has no overt bleeding
getting IV iron, she has a living will she does not want blood transfusions her son is her POA
Will need eventual endoscopy and colonoscopy to rule out possible neoplasm or angioectasias causing anemia if medically stable
Subjective
Subjective
Date of Service: October 16, 2024
Patient still with epigastric pain but improving. Lipase is trending down, LFTs are stable, afebrile
Objective
Data Reviewed
Laboratory Data:
Laboratory Results
10/16/24 05:18
10/16/24 05:18
Laboratory Results
Total Bilirubin 0.5 mg/dl (0.2-1.3) 10/16/24 05:18
AST 151 U/L (14-36) H 10/16/24 05:18
ALT 207 U/L (0-35) H 10/16/24 05:18
Alkaline Phosphatase 100 U/L (38-126) 10/16/24 05:18
Lipase 3436 U/L (23-300) H* 10/16/24 05:18
Vital Signs and I&O:
Vital Signs
Temp Pulse Resp BP Pulse Ox
98.2 F 68 16 137/65 94
10/16/24 08:34 10/16/24 11:00 10/16/24 11:42 10/16/24 11:00 10/16/24 11:42
I&O
10/15/24 10/16/24 10/17/24
06:59 06:59 06:59
Intake Total 1200 / 1200
Output Total 950 / 950
Balance 250 / 250
10/15/24 CT abd/pelvis
IMPRESSION:
1. Findings suggesting mild acute uncomplicated interstitial edematous pancreatitis.
2. Cholelithiasis with presence of pericholecystic fluid. Acute cholecystitis cannot be entirely excluded.
Physical Exam
Physical Exam
Cardiology: Normal Sinus Rhythm
Pulmonary: Clear
GI: Soft, Non Distended, Tender (epigastric and right upper quadrant) and Normal Bowel Sounds
[2024-10-16] MEDS: ATIVAN 1 MG IV (12:56)
[2024-10-16] MEDS: FERRLECIT 110 MG IV (14:13)
--- NOTE | 2024-10-16 14:47 | W.PN.HOSP.TC ---
Today's Communication/Plan
-
Monitor on clear liquid diet
Stop IV fluids.
Assessment / Plan
Assessment / Plan
Impression:
Presentation with abdominal pain.
Acute gallstone pancreatitis.
Chronic microcytic anemia with iron deficiency
Other conditions:
CAD with history of non-STEMI and PCI to LAD 12/2021
Ischemic cardiomyopathy with recovered LVEF
Essential hypertension.
Dyslipidemia
Nonsustained ventricular tachycardia.
Dementia Alzheimer type
Anxiety
Plan:
Presentation with abdominal pain.
Suspect acute gallstone pancreatitis.
Afebrile with benign abdominal examination.
Ultrasound of the abdomen: Cholelithiasis without convincing sonographic evidence of acute cholecystitis. Nonspecific sonographic appearance of the pancreas which could reflect underlying acute pancreatitis.
Normal bilirubin with mild elevation of transaminases
CT scan consistent with uncomplicated pancreatitis, cholelithiasis with presence of pericholecystic fluid. Could not rule out acute cholecystitis
MRI of the abdomen with MRCP with no evidence of choledocholithiasis, cholelithiasis. Uncomplicated pancreatitis.
Exam remains with extremely mild right upper quadrant tenderness, although not reliable given patient cognition
Discussed with surgery and gastroenterology
Plan to monitor closely while diet will be advanced to clear liquids
Follow BMP/LFTs/CRP
Continue IV PPI
Adjust analgesia: Hydromorphone 0.25 mg IV every 3 hours as needed.
Chronic microcytic anemia.
Hemoglobin stable with no evidence of brisk blood loss
Patient is Jehovah witness and would not accept blood transfusion
Continue IV iron
Minimize blood drawing unless required.
CAD.
History of non-STEMI with PCI to LAD.
Prior history of LV thrombus
Ischemic cardiomyopathy with recovered EF.
History of nonsustained ventricular tachycardia.
Hypertension/dyslipidemia
Echo 07/15 with LVEF 55-60% with residual hypokinesis in the distal LAD/diagonal territory with resolution of thrombus
Continue Toprol, Cozaar, statin.
Hold Xarelto acutely in anticipation of surgical intervention
Continue aspirin while off Xarelto. Patient is currently not on Plavix
Dementia likely Alzheimer type
Anxiety
Continue memantine, duloxetine and Xanax
Full code
DVT prophylaxis subcu hep
Anticipated Discharge: 24 - 48 hours
Subjective/Interval History
-
Date of Service: October 16, 2024
Objective Data
-
Labs:
Laboratory Results
10/16/24
05:18
WBC 6.3
Hgb 7.9 L D
Hct 27.2 L
Plt Count 184 D
Sodium 136
Potassium 3.6
Chloride 104
Carbon Dioxide 28
BUN 13
Creatinine 0.7
Glucose 88
Calcium 8.1 L
Total Bilirubin 0.5
AST 151 H
ALT 207 H
Alkaline Phosphatase 100
Vital Signs:
Vital Signs
Temp Pulse Resp BP Pulse Ox
98.2 F 70 16 134/86 93
10/16/24 08:34 10/16/24 13:05 10/16/24 13:05 10/16/24 13:05 10/16/24 13:05
I&O
10/15/24 10/16/24 10/17/24
06:59 06:59 06:59
Intake Total 1200 / 1200
Output Total 950 / 950
Balance 250 / 250
Physical Exam
-
General: Well Developed and No Apparent Distress
HEENT: Normocephalic, Atraumatic and Moist Mucous Membranes
Respiratory: Clear to Auscultation
Cardiac: Regular Rhythm and S1/S2; Negative Murmur, Rub or Gallop
GI: Soft, Nontender, Nondistended and Normal Bowel Sounds; Negative Organomegaly
Rectal: Deferred by Provider
Musculoskeletal: No Clubbing, No Cyanosis and No Edema
Skin: Negative Rash
Neuro: Nonfocal/Grossly Intact
--- NOTE | 2024-10-16 15:52 | EDRN ---
Left message for RN who will care for pt about lipase and HGB.
--- NOTE | 2024-10-16 16:37 | PTCARENOTE ---
Received patient from ED into room 2125. Patient AAO to self with hx dementia, pleasantly confused, daughter at bedside. Patient ambulatory in room with x1 assist, does not typically use assistive devices at baseline per daughter. Bed and chair
alarm intact, medsitter from ED to be placed in room. VSS, patient straight cathed at 1500 for 400 ml per ED RN, patient with retention issues in ED, straight cathed x3 in last 24 hours. Per daughter, patient normally continent at home. Bladder scan
52 ml currently, patient denies any pain or urge to void. Patient on clear liquid diet, daughter at bedside oriented to room and call flynn.
[2024-10-16] MEDS: LIPITOR 20 MG PO (17:28)
[2024-10-16] MEDS: XANAX 0.5 MG PO ×2 (18:06→22:01)
--- NOTE | 2024-10-16 18:30 | PTCARENOTE ---
Patient restless, pulling at tele leads and attempting to get out of bed and walk out of room despite redirection by this RN and daughter at bedside. MD made aware, verbal order taken for one time dose of 0.5 mg PO xanax, administered by this RN -
see MAR. Patient with bladder scan of 395 ml, states no urge to void. MD made aware, verbal order taken for truong for acute retention. 14Fr truong inserted by this RN, 600 ml clear yellow output upon insertion. Patient tolerated procedure.
[2024-10-16] MEDS: DILAUDID 0.25 MG IV (19:33)
[2024-10-17] MEDS: DILAUDID 0.25 MG IV ×5 (02:49→23:07)
[2024-10-17 03:00] VITALS: BP 143/77
[2024-10-17 06:03] LABS: % Basophils 0.7 % (0-2); % Eosinophils 2.8 % (0-6); % Immature Granulocytes 0.2 % (0-0.5); % Lymphocytes 11.7 % (20.5-51.1); % Monocytes 9.7 % (1.7-9.3); % Neutrophils 74.9 % (42.2-75.2); Absolute Eosinophils 0.2 10^3/uL (0-0.7); Absolute Lymphocytes 0.7 10^3/uL (1.2-3.4); Absolute Monocytes 0.6 10^3/uL (0.1-0.6); Absolute Neutrophils 4.6 10^3/uL (1.4-6.5); Hematocrit 26.8 % (37.0-47.0); Hemoglobin 8.3 g/dL (12.0-16.0); Mean Corpuscular Hgb 23.5 pg (27.0-31.0); Mean Corpuscular Volume 75.9 fL (81.0-99.0); Mean Platelet Volume 11.4 fL (7.4-10.4); Nucleated Red Blood Cells % 0 %; Platelet Count 179 10^3/uL (130-400); Red Blood Cell Count 3.53 10^6/uL (4.20-5.40); Red Cell Dist. Width 15.7 % (11.5-14.5); White Blood Cell Count 6.1 10^3/uL (4.8-10.8)
[2024-10-17 06:30] LABS: ALT (SGPT) 150 U/L (0-35); AST (SGOT) 71 U/L (14-36); Albumin 3.3 g/dl (3.5-5.0); Alkaline Phosphatase 105 U/L (38-126); Blood Urea Nitrogen 6 mg/dl (7-17); Calcium 8.3 mg/dl (8.4-10.2); Carbon Dioxide 27 mmol/L (22-30); Chloride 100 mmol/L (98-107); Direct Bilirubin 0.1 mg/dl (0.0-0.4); Estimated Creatinine Clearance 55 ml/min; Glucose 104 mg/dl (70-99); Potassium 3.7 mmol/L (3.5-5.1); Sodium 135 mmol/L (135-145); Total Bilirubin 0.4 mg/dl (0.2-1.3); Total Protein 5.5 g/dl (6.3-8.2); eGFR > 60.00
[2024-10-17 07:00] VITALS: BP 163/83
[2024-10-17] MEDS: HEPARIN 5000 UNITS SC ×2 (08:17→21:00)
[2024-10-17] MEDS: COZAAR 25 MG PO (08:18)
[2024-10-17] MEDS: NAMENDA 10 MG PO (08:18)
[2024-10-17] MEDS: CYMBALTA DELAYED RELEASE 20 MG PO (08:18)
[2024-10-17] MEDS: PROTONIX 40 MG PO (08:18)
[2024-10-17] MEDS: TOPROL XL 12.5 MG PO (08:18)
[2024-10-17] MEDS: LOW STRENGTH ASPIRIN 81 MG PO (08:18)
--- NOTE | 2024-10-17 10:53 | W.PN.GS2 ---
Today's Communication / Plan
-
Cont clears
serrial exams
Assessment / Plan
-
Ms Cavanaugh is an 83 yo female with a h/o Alzheimer's dz, CAD with [place], HFrEF, ischemic CM and LV Thrombus on plavix and Xarelto with prior surgical history of CHHAYA for management of ovarian CA who presents with worsening epigastric abdominal pain and
nausea. Lipase markedly elevated (>4k) with mild transaminitis noted. Leukocytosis is present. Gallstones present on US and near the gallbladder neck but without evidence of acute cholecystitis. Suspect gallstone mediated pancreatitis.
Patient is overall a poor historian secondary to dementia, family present at bedside and update provided.
Low grade temp noted. LFTs improving. No leukocytosis.
--Cont CLD
--Hold Plavix/Xarelto
--Serial exams
--If clinical deterioration would pursue HIDA
--will follow
Subjective Data
-
Date of Service: October 17, 2024
Tmax 99.9F, otherwise VSS. Offers no complaints. Minimally participatory 2/2 dementia
Objective Data
-
Intake and Output
10/16/24 10/17/24 10/18/24
06:59 06:59 06:59
Intake Total 1200 / 1200 360 / 360
Output Total 950 / 950 1200 / 1200
Balance 250 / 250 -840 / -840
Intake:
Oral fluids 360 / 360
IV fluids (Total) 1200 / 1200
Output:
Urine, Camacho 1200 / 1200
Straight cath output 950 / 950
Vital Signs
Temp Pulse Resp BP Pulse Ox
98.6 F 84 16 163/83 93
10/17/24 07:00 10/17/24 07:00 10/17/24 07:00 10/17/24 07:00 10/17/24 07:00
Lab Results
10/17/24 04:38
10/17/24 04:38
Calcium 8.3 mg/dl (8.4-10.2) L 10/17/24 04:38
Total Bilirubin 0.4 mg/dl (0.2-1.3) 10/17/24 04:38
Direct Bilirubin 0.1 mg/dl (0.0-0.4) 10/17/24 04:38
AST 71 U/L (14-36) H 10/17/24 04:38
ALT 150 U/L (0-35) H 10/17/24 04:38
Alkaline Phosphatase 105 U/L (38-126) 10/17/24 04:38
Total Protein 5.5 g/dl (6.3-8.2) L 10/17/24 04:38
Albumin 3.3 g/dl (3.5-5.0) L 10/17/24 04:38
Physical Exam
-
Gen: NAD
Abd: soft, mild ttp to RUQ and epigastrium
--- NOTE | 2024-10-17 11:11 | W.PN.HOSP.TC ---
Today's Communication/Plan
-
Continue current care
Assessment / Plan
Assessment / Plan
Gen-awake but not alert, NAD
HEENT-NC, AT, anicteric, clear oral mm
Neck-supple
CV-reg, no M, +S1/S2
Lungs-clear B/L
Abd-soft, NT, ND
Ext-no edema
Musculoskeletal-no cyanosis, clubbing
Skin-warm and dry
Neuro-grossly non-focal
Psych-calm, cooperative
Acute gallstone pancreatitis -MRI abdomen negative for choledocholithiasis. Clear liquid diet started. Will need eventual cholecystectomy, timing to be determined by surgical service. Elevated LFTs noted.
Currently off IV fluids but low threshold to resume given dementia and poor oral intake.
Chronic microcytic anemia with iron deficiency -baseline hemoglobin unknown. Hemoglobin 8.3 today. Monitor for now. Continue IV iron. Eventual endoscopic workup per GI service.
CAD with history of non-STEMI and PCI to LAD 12/2021
Ischemic cardiomyopathy with recovered LVEF
History of LV thrombus -on Xarelto prior to admission, currently on hold.
Essential hypertension -stable.
Hyperlipidemia -atorvastatin.
Nonsustained ventricular tachycardia
Dementia, Alzheimer type
Anxiety
Full code
Anticipated Discharge: > 48 hours
Subjective/Interval History
-
Date of Service: October 17, 2024
Patient seen and examined. No complaints.
Objective Data
-
Labs:
Laboratory Results
10/17/24
04:38
WBC 6.1
Hgb 8.3 L
Hct 26.8 L
Plt Count 179
Sodium 135
Potassium 3.7
Chloride 100
Carbon Dioxide 27
BUN 6 L
Creatinine 0.6
Glucose 104 H
Calcium 8.3 L
Total Bilirubin 0.4
AST 71 H
ALT 150 H
Alkaline Phosphatase 105
Vital Signs:
Vital Signs
Temp Pulse Resp BP Pulse Ox
98.6 F 84 16 163/83 93
10/17/24 07:00 10/17/24 07:00 10/17/24 07:00 10/17/24 07:00 10/17/24 07:00
I&O
10/16/24 10/17/24 10/18/24
06:59 06:59 06:59
Intake Total 1200 / 1200 360 / 360
Output Total 950 / 950 1200 / 1200
Balance 250 / 250 -840 / -840
Review of Systems
-
Unable to obtain full review of systems at this time due to: Dementia
History Source: Patient
All other systems: Reviewed and negative
[2024-10-17 11:17] VITALS: BP 164/80
[2024-10-17] MEDS: FERRLECIT 110 MG IV (13:38)
--- NOTE | 2024-10-17 13:43 | W.PN.GI.CBS2 ---
Today's Communication / Plan
-
Serial exams, monitor H&H. LFTs improving.
Assessment / Plan
-
Pt is an 83yo with hx ovarian CA with prior hysterectomy, dementia, prior ETOH use, HTN, cardiac stents with prior MT and noted left ventricular thrombus ,CHF, anxiety/depression, MRSA presents with abdominal pain. Pt was noted with intermittent
abdominal/chest pain for months. Pt with neg cardiac eval with hx prior MT and stenting with recent visit with Dr. Montes. On admission noted with WBC 12,100, hbg 10.5, bili 0.8, AST 140, ALT 46, alk phos 126 and lipase >4000. US completed with
cholelithiasis without acute cholecystis, gallstone in GB neck, CBD 6 cm and non specific changes of pancreas could reflect pancreatitis. She was able to complete MRI/MRCP yesterday which did not show any evidence of choledocholithiasis, evidence of
cholelithiasis, minor peripancreatic inflammation c/w acute interstitial edematous pancreatitis; mild dilation of the pancreatic duct, measuring 5 mm in the HOP and 4 mm in the body of the pancreas, small periampullary duodenal diverticulum.
-pancreatitis likely gallstone related
-intermittent abdominal/chest pain for months
-leukocytosis--> resolved
-cholelithiasis--> no evidence of cholecystitis
-distended stomach per US
-anemia- microcytic iron deficiency--> drop in hgb without signs of overt GI bleeding
-hx LV thrombus on chronic Xarelto --> currently on hold
-CHF
-Pancreatic duct dilation-- PD dilated to 5mm in HOP and 4 mm in body of pancreas, could consider nonurgent EUS, could be 2/2 periampullary diverticulum
other med problems:
-cardiac stent
-prior ETOH use
-ovarian CA s/p hysterectomy
-dementia
-HTN
-anxiety/depression
-hx MRSA
PLAN:
etiology of pancreatitis likely gallstone related/gallstone at GB neck
leukocytosis and LFTs improving; very low grade temp early this morning which has resolved
Surgery following, if worsening, recommending HIDA scan
Off of LR at this time and diet advanced, however, low threshold to resume for treatment of her pancreatitis given dementia and low PO intake
Acute on chronic anemia-- Hgb 8.3 today from 7.9 yesterday, no signs of GI bleeding, continue to monitor
Started on PO PPI once daily yesterday
getting IV iron, she has a living will she does not want blood transfusions her son is her POA
Will need eventual endoscopy and colonoscopy to rule out possible neoplasm or AVMs causing anemia if medically stable and patient/family wishes to pursue
Subjective
Subjective
Date of Service: October 17, 2024
Patient seen in follow-up. She is a limited historian, but reports feeling much better than yesterday.
MRI/MRCP completed yesterday:
IMPRESSION:
1. No MRCP evidence for choledocholithiasis.
2. Cholelithiasis.
3. Minor peripancreatic inflammation in keeping with acute interstitial edematous pancreatitis. Mild dilatation of the main pancreatic duct.
4. Small periampullary duodenal diverticulum.
Tmax 99.9 at 3 AM this morning
WBC 6.1, Hgb 10.5 --> 7.9 --> 8.3, MCV 75.9, Plt 179
Lipase >4000 --> 3436
AST 151 --> 71
ALT 207 --> 150
Alk phos 105
Tbili 0.4
Objective
Data Reviewed
Laboratory Data:
Laboratory Results
10/17/24 04:38
10/17/24 04:38
Laboratory Results
Total Bilirubin 0.4 mg/dl (0.2-1.3) 10/17/24 04:38
AST 71 U/L (14-36) H 10/17/24 04:38
ALT 150 U/L (0-35) H 10/17/24 04:38
Alkaline Phosphatase 105 U/L (38-126) 10/17/24 04:38
Lipase 3436 U/L (23-300) H* 10/16/24 05:18
Vital Signs and I&O:
Vital Signs
Temp Pulse Resp BP Pulse Ox
98.1 F 63 14 164/80 92
10/17/24 11:17 10/17/24 11:17 10/17/24 11:17 10/17/24 11:17 10/17/24 11:17
I&O
10/16/24 10/17/24 10/18/24
06:59 06:59 06:59
Intake Total 1200 / 1200 360 / 360
Output Total 950 / 950 1200 / 1200
Balance 250 / 250 -840 / -840
Physical Exam
Physical Exam
Cardiology: Normal Sinus Rhythm
Pulmonary: Clear
GI: Soft, Non Distended, Non Tender and Normal Bowel Sounds
[2024-10-17 15:35] VITALS: BP 146/72
--- NOTE | 2024-10-17 15:45 | CM ---
Patient met in room with son and his . Patient's dgtr is her 24 hour caregiver. Patient has dementia but has full mobility. Per son she is able to dress herself each day. She lives in 2 level home with 4 steps to enter. No half bath on entry
level. UP 13 steps to bathroom and bedroom.
She does not use any DME. she does not drive.
No history of SNF or VNA.
PCP Dr. Javier Howard
Pharmacy: [facility]
PLAN: home with support from dgtr.
[2024-10-17] MEDS: LIPITOR 20 MG PO (17:56)
[2024-10-17 18:48] VITALS: BP 144/68
[2024-10-17] MEDS: XANAX 0.5 MG PO (21:00)
[2024-10-17 23:18] VITALS: BP 132/78
[2024-10-18 03:12] VITALS: BP 148/75
[2024-10-18] MEDS: DILAUDID 0.25 MG IV ×2 (05:14→12:38)
[2024-10-18 07:02] LABS: % Basophils 0.9 % (0-2); % Eosinophils 6.6 % (0-6); % Immature Granulocytes 0.3 % (0-0.5); % Lymphocytes 19.9 % (20.5-51.1); % Neutrophils 59.3 % (42.2-75.2); Absolute Eosinophils 0.2 10^3/uL (0-0.7); Absolute Lymphocytes 0.7 10^3/uL (1.2-3.4); Absolute Monocytes 0.4 10^3/uL (0.1-0.6); Hematocrit 28.3 % (37.0-47.0); Hemoglobin 8.7 g/dL (12.0-16.0); Mean Corp Hgb Conc. 30.7 g/dL (33.0-37.0); Mean Corpuscular Hgb 23.3 pg (27.0-31.0); Mean Corpuscular Volume 75.7 fL (81.0-99.0); Mean Platelet Volume 10.8 fL (7.4-10.4); Nucleated Red Blood Cells % 0 %; Platelet Count 192 10^3/uL (130-400); Red Blood Cell Count 3.74 10^6/uL (4.20-5.40); Red Cell Dist. Width 15.8 % (11.5-14.5); White Blood Cell Count 3.3 10^3/uL (4.8-10.8)
[2024-10-18 07:30] LABS: ALT (SGPT) 109 U/L (0-35); AST (SGOT) 38 U/L (14-36); Albumin 3.3 g/dl (3.5-5.0); Alkaline Phosphatase 93 U/L (38-126); Blood Urea Nitrogen 5 mg/dl (7-17); Calcium 8.5 mg/dl (8.4-10.2); Carbon Dioxide 31 mmol/L (22-30); Chloride 99 mmol/L (98-107); Estimated Creatinine Clearance 55 ml/min; Glucose 115 mg/dl (70-99); Potassium 3.7 mmol/L (3.5-5.1); Sodium 135 mmol/L (135-145); Total Bilirubin 0.4 mg/dl (0.2-1.3); Total Protein 5.7 g/dl (6.3-8.2); eGFR > 60.00
[2024-10-18 07:50] VITALS: BP 154/79
[2024-10-18] MEDS: TOPROL XL 12.5 MG PO (09:37)
[2024-10-18] MEDS: NAMENDA 10 MG PO (09:37)
[2024-10-18] MEDS: LOW STRENGTH ASPIRIN 81 MG PO (09:37)
[2024-10-18] MEDS: CYMBALTA DELAYED RELEASE 20 MG PO (09:37)
[2024-10-18] MEDS: PROTONIX 40 MG PO (09:37)
[2024-10-18] MEDS: COZAAR 25 MG PO (09:37)
[2024-10-18] MEDS: HEPARIN 5000 UNITS SC ×2 (09:37→21:26)
--- NOTE | 2024-10-18 10:52 | W.PN.GS2 ---
Today's Communication / Plan
-
Pls call with ?s
Assessment / Plan
-
Ms Cavanaugh is an 83 yo female with a h/o Alzheimer's dz, CAD with [place], HFrEF, ischemic CM and LV Thrombus on plavix and Xarelto with prior surgical history of CHHAYA for management of ovarian CA who presents with worsening epigastric abdominal pain and
nausea. Lipase markedly elevated (>4k) with mild transaminitis noted. Leukocytosis is present. Gallstones present on US and near the gallbladder neck but without evidence of acute cholecystitis. Suspect gallstone mediated pancreatitis.
Patient is overall a poor historian secondary to dementia, family present at bedside and update provided.
Low grade temp noted. LFTs improving. No leukocytosis.
Tenderness has resolved
-- OK to adv to low fat diet from surg standpoint, if GI plans scope would defere diet advancement to them
--Hold Plavix/Xarelto
--Pt can f/u with GS in the office to discuss CCY if she wishes
Subjective Data
-
Date of Service: October 18, 2024
Improving, no complaints
Objective Data
-
Intake and Output
10/17/24 10/18/24 10/19/24
06:59 06:59 06:59
Intake Total 360 / 360 240 / 240
Output Total 1200 / 1200 1275 / 1275
Balance -840 / -840 -1035 / -1035
Intake:
Oral fluids 360 / 360 240 / 240
Output:
Urine, Camacho 1200 / 1200 1275 / 1275
Vital Signs
Temp Pulse Resp BP Pulse Ox
99.0 F 68 14 154/79 91
10/18/24 07:50 10/18/24 07:50 10/18/24 07:50 10/18/24 07:50 10/18/24 07:50
Lab Results
10/18/24 06:39
10/18/24 06:39
Calcium 8.5 mg/dl (8.4-10.2) 10/18/24 06:39
Total Bilirubin 0.4 mg/dl (0.2-1.3) 10/18/24 06:39
Direct Bilirubin 0.1 mg/dl (0.0-0.4) 10/17/24 04:38
AST 38 U/L (14-36) H 10/18/24 06:39
ALT 109 U/L (0-35) H 10/18/24 06:39
Alkaline Phosphatase 93 U/L (38-126) 10/18/24 06:39
Total Protein 5.7 g/dl (6.3-8.2) L 10/18/24 06:39
Albumin 3.3 g/dl (3.5-5.0) L 10/18/24 06:39
Physical Exam
-
Gen: NAd
Abd: soft, nt
[2024-10-18 11:34] LABS: Lipase 301 U/L (23-300)
--- NOTE | 2024-10-18 11:49 | W.PN.HOSP.TC ---
Today's Communication/Plan
-
N.p.o. after midnight
Assessment / Plan
Assessment / Plan
Gen-sleepy but arousable, NAD
HEENT-NC, AT, anicteric, clear oral mm
Neck-supple
CV-reg, no M, +S1/S2
Lungs-clear B/L
Abd-soft, NT, ND
Ext-no edema
Musculoskeletal-no cyanosis, clubbing
Skin-warm and dry
Neuro-grossly non-focal
Psych-calm, cooperative
Acute gallstone pancreatitis -MRI abdomen negative for choledocholithiasis. Clear liquid diet started. Will need eventual cholecystectomy, timing to be determined by surgical service. Elevated LFTs noted.
Currently off IV fluids but low threshold to resume given dementia and poor oral intake.
Chronic microcytic anemia with iron deficiency -baseline hemoglobin unknown. Hemoglobin 8.7 today. Monitor for now. Continue IV iron. GI service plans on EGD and colonoscopy 10/19. N.p.o. after midnight.
CAD with history of non-STEMI and PCI to LAD 12/2021
Ischemic cardiomyopathy with recovered LVEF
History of LV thrombus -on Xarelto prior to admission, currently on hold.
Essential hypertension -stable.
Hyperlipidemia -atorvastatin.
Nonsustained ventricular tachycardia
Dementia, Alzheimer type
Anxiety
Full code
Anticipated Discharge: 24 - 48 hours
Subjective/Interval History
-
Date of Service: October 18, 2024
Patient seen and examined. Sleeping while walking, no complaints.
Objective Data
-
Labs:
Laboratory Results
10/18/24
06:39
WBC 3.3 L
Hgb 8.7 L
Hct 28.3 L
Plt Count 192
Sodium 135
Potassium 3.7
Chloride 99
Carbon Dioxide 31 H
BUN 5 L
Creatinine 0.6
Glucose 115 H
Calcium 8.5
Total Bilirubin 0.4
AST 38 H
ALT 109 H
Alkaline Phosphatase 93
Vital Signs:
Vital Signs
Temp Pulse Resp BP Pulse Ox
99.0 F 68 14 154/79 91
10/18/24 07:50 10/18/24 07:50 10/18/24 07:50 10/18/24 07:50 10/18/24 07:50
I&O
10/17/24 10/18/24 10/19/24
06:59 06:59 06:59
Intake Total 360 / 360 240 / 240
Output Total 1200 / 1200 1275 / 1275
Balance -840 / -840 -1035 / -1035
Review of Systems
-
Unable to obtain full review of systems at this time due to: Dementia
History Source: Patient
All other systems: Reviewed and negative
--- NOTE | 2024-10-18 12:43 | W.PN.GI.CBS2 ---
Today's Communication / Plan
-
EGD/colonoscopy tomorrow
Assessment / Plan
-
Pt is an 83yo with hx ovarian CA with prior hysterectomy, dementia, prior ETOH use, HTN, cardiac stents with prior [place] and noted left ventricular thrombus ,CHF, anxiety/depression, MRSA presents with abdominal pain. Pt was noted with intermittent
abdominal/chest pain for months. Pt with neg cardiac eval with hx prior MO and stenting with recent visit with Dr. Montes. On admission noted with WBC 12,100, hbg 10.5, bili 0.8, AST 140, ALT 46, alk phos 126 and lipase >4000. US completed with
cholelithiasis without acute cholecystis, gallstone in GB neck, CBD 6 cm and non specific changes of pancreas could reflect pancreatitis. She was able to complete MRI/MRCP yesterday which did not show any evidence of choledocholithiasis, evidence of
cholelithiasis, minor peripancreatic inflammation c/w acute interstitial edematous pancreatitis; mild dilation of the pancreatic duct, measuring 5 mm in the HOP and 4 mm in the body of the pancreas, small periampullary duodenal diverticulum.
-pancreatitis likely gallstone related
-intermittent abdominal/chest pain for months
-leukocytosis--> resolved
-cholelithiasis--> no evidence of cholecystitis
-distended stomach per US
-anemia- microcytic iron deficiency--> drop in hgb without signs of overt GI bleeding
-hx LV thrombus on chronic Xarelto --> currently on hold
-CHF
-Pancreatic duct dilation-- PD dilated to 5mm in HOP and 4 mm in body of pancreas, could consider nonurgent EUS, could be 2/2 periampullary diverticulum
other med problems:
-cardiac stent
-prior ETOH use
-ovarian CA s/p hysterectomy
-dementia
-HTN
-anxiety/depression
-hx MRSA
PLAN:
- lipase now in 300s and symptomatically pancreatitis resolved
- Pt and family want to pursue anemia and pt has never had egd/colonoscopy and agreeable. I did get consent from son Epifanio Cavanaugh.
- will prep today for egd/colon tomorrow
Subjective
Subjective
Date of Service: October 18, 2024
Pt with no more abdominal pain, tolerating clears. hgb shows anemia. Pt and family deny GI symptoms or prior endoscopic evaluation.
Objective
Data Reviewed
Laboratory Data:
Laboratory Results
10/18/24 06:39
10/18/24 06:39
Laboratory Results
Total Bilirubin 0.4 mg/dl (0.2-1.3) 10/18/24 06:39
AST 38 U/L (14-36) H 10/18/24 06:39
ALT 109 U/L (0-35) H 10/18/24 06:39
Alkaline Phosphatase 93 U/L (38-126) 10/18/24 06:39
Lipase 301 U/L (23-300) H 10/18/24 06:39
Vital Signs and I&O:
Vital Signs
Temp Pulse Resp BP Pulse Ox
99.0 F 68 14 154/79 91
10/18/24 07:50 10/18/24 07:50 10/18/24 07:50 10/18/24 07:50 10/18/24 07:50
I&O
10/17/24 10/18/24 10/19/24
06:59 06:59 06:59
Intake Total 360 / 360 240 / 240
Output Total 1200 / 1200 1275 / 1275
Balance -840 / -840 -1035 / -1035
Physical Exam
Physical Exam
GI: Soft, Non Distended and Non Tender
[2024-10-18 13:26] VITALS: BMI 25.0
[2024-10-18 15:39] VITALS: BP 153/80
--- NOTE | 2024-10-18 17:00 | CM ---
Patient for colonoscopy tomorrow
On medsitter
daughter is 24 hr caregiver
PT Screening only
PLAN: Await PT eval
[2024-10-18] MEDS: NULYTELY SOLUTION 4 LITERS PO (17:46)
[2024-10-18] MEDS: LIPITOR 20 MG PO (17:46)
[2024-10-18] MEDS: XANAX 0.5 MG PO (21:26)
[2024-10-18 23:11] VITALS: BP 149/75
[2024-10-19] VITALS (11 sets, daily range): BP systolic 15–162; BP diastolic 53–93; PULSE 61; O2SAT 94–95
[2024-10-19 09:24] LABS: ALT (SGPT) 82 U/L (0-35); AST (SGOT) 32 U/L (14-36); Albumin 3.2 g/dl (3.5-5.0); Alkaline Phosphatase 97 U/L (38-126); Blood Urea Nitrogen 3 mg/dl (7-17); Calcium 8.4 mg/dl (8.4-10.2); Carbon Dioxide 31 mmol/L (22-30); Chloride 101 mmol/L (98-107); Estimated Creatinine Clearance 55 ml/min; Glucose 98 mg/dl (70-99); Potassium 3.5 mmol/L (3.5-5.1); Sodium 138 mmol/L (135-145); Total Bilirubin 0.3 mg/dl (0.2-1.3); Total Protein 5.6 g/dl (6.3-8.2); eGFR > 60.00
[2024-10-19 09:39] LABS: % Basophils 1.2 % (0-2); % Eosinophils 8.9 % (0-6); % Lymphocytes 28.9 % (20.5-51.1); % Monocytes 19.1 % (1.7-9.3); % Neutrophils 41.9 % (42.2-75.2); Absolute Eosinophils 0.3 10^3/uL (0-0.7); Absolute Lymphocytes 0.9 10^3/uL (1.2-3.4); Absolute Monocytes 0.6 10^3/uL (0.1-0.6); Absolute Neutrophils 1.4 10^3/uL (1.4-6.5); Hematocrit 30.8 % (37.0-47.0); Hemoglobin 9.2 g/dL (12.0-16.0); Mean Corp Hgb Conc. 29.9 g/dL (33.0-37.0); Mean Corpuscular Hgb 23.3 pg (27.0-31.0); Mean Platelet Volume 11.2 fL (7.4-10.4); Nucleated Red Blood Cells % 0 %; Platelet Count 201 10^3/uL (130-400); Red Blood Cell Count 3.95 10^6/uL (4.20-5.40); Red Cell Dist. Width 15.9 % (11.5-14.5); White Blood Cell Count 3.3 10^3/uL (4.8-10.8)
--- NOTE | 2024-10-19 10:31 | W.PN.UPDATE ---
Update Note
Progress Note Update
EGD/colonoscoped performed today which showed unremarkable findings. Please refer to procedure note for details. Can resume solid regular diet today. If pain is resolved then ok to d/c with GI f/u for consideration of capsule endo and surgery f/u
for possible cholecystectomy. GI s/o.
[2024-10-19] MEDS: PROTONIX 40 MG PO (11:46)
[2024-10-19] MEDS: NAMENDA 10 MG PO (11:46)
[2024-10-19] MEDS: CYMBALTA DELAYED RELEASE 20 MG PO (11:46)
[2024-10-19] MEDS: LOW STRENGTH ASPIRIN 81 MG PO (11:46)
[2024-10-19] MEDS: TOPROL XL 12.5 MG PO (11:46)
[2024-10-19] MEDS: COZAAR 25 MG PO (11:46)
[2024-10-19] MEDS: HEPARIN 5000 UNITS SC (11:47)
--- NOTE | 2024-10-19 11:53 | CM ---
Addendum entered by Sb San 10/19/24 16:06:
Discharge order noted.
Pt's daughter is aware and she stated she will transport her mother home after 5:00 p.m.
[facility] at [phone].
D/C plan: home with [facility] and family support. daughter Laila to transport.
Original Note:
CM following re: discharge planning.
Reviewed pt's chart, met with pt and pt's son Epifanio at bedside.
Pt's son Epifanio stated that pt lives with daughter and daughter provides 24/7 care. Pt' son stated he can help as needed. Pt's son stated that pt is in and out from the hospital in the past 3 months and he is requested VN services. A list of VN
vendors provided, [facility] proffered.
A referral to [facility] made.
IMM reviewed, placed on chart, pt's son has a copy.
D/C plan: home with VN and 24/7 family care/supervision. Family to transport at discharge.
CM will follow with discharge plan updates as hospitalization progresses
--- NOTE | 2024-10-19 12:00 | VNURNOTE ---
Home Health Liaison spoke with patient's daughter Laila (primary CG) to discuss [facility] nurse/therapy, visits, schedule and homebound status. Daughter is agreeable and understands that visits at home will be 2-3 x per week to assess and teach medical
management. Daughter is aware that [facility] will contact them for start of care in 1-2 days after discharge from .
[facility] referral completed in [facility].
--- NOTE | 2024-10-19 14:09 | W.PN.HOSP.TC ---
Today's Communication/Plan
-
PT/OT
Discharge planning
Assessment / Plan
Assessment / Plan
Gen-awake, alert, NAD
HEENT-NC, AT, anicteric, clear oral mm
Neck-supple
CV-reg, no M, +S1/S2
Lungs-clear B/L
Abd-soft, NT, ND
Ext-no edema
Musculoskeletal-no cyanosis, clubbing
Skin-warm and dry
Neuro-grossly non-focal
Psych-calm, cooperative
Acute gallstone pancreatitis -MRI abdomen negative for choledocholithiasis. Will need eventual cholecystectomy, possibly as outpatient as per surgical service. Discussed with family at the bedside to follow-up with Dr. Alanis in the office to
decide.
LFTs trending down.
Low-fat diet ordered.
Chronic microcytic anemia with iron deficiency -baseline hemoglobin unknown. Hemoglobin spontaneously improved to 9.2 today. Admission hemoglobin was 10.5. Monitor for now. Completed course of IV iron. EGD/colonoscopy today unremarkable as per
GI service. Needs outpatient capsule endoscopy and GI follow-up. Discussed with family. Continue iron orally on discharge, 1 tablet every other day. Take with vitamin C. Take early in the morning on an empty stomach, apart from other
medications or antacids.
CAD with history of non-STEMI and PCI to LAD 12/2021 -stop aspirin and start Plavix per her market manager recommendation, Dr. Montes. I did speak with him on the phone today. [phone].
Ischemic cardiomyopathy with recovered LVEF
History of LV thrombus -okay to resume Xarelto as per GI service.
Essential hypertension -stable.
Hyperlipidemia -atorvastatin.
Nonsustained ventricular tachycardia
Dementia, Alzheimer type
Anxiety
Full code
PT/OT
Dispo -medically stable for discharge, awaiting PT/OT input. Updated family at the bedside. Discussed with nursing.
Anticipated Discharge: Within 24 hours
Subjective/Interval History
-
Date of Service: October 19, 2024
Patient seen and examined. No complaints. Family at the bedside.
Objective Data
-
Labs:
Laboratory Results
10/19/24
07:33
WBC 3.3 L
Hgb 9.2 L
Hct 30.8 L
Plt Count 201
Sodium 138
Potassium 3.5
Chloride 101
Carbon Dioxide 31 H
BUN 3 L
Creatinine 0.6
Glucose 98
Calcium 8.4
Total Bilirubin 0.3
AST 32
ALT 82 H
Alkaline Phosphatase 97
Vital Signs:
Vital Signs
Temp Pulse Resp BP Pulse Ox
97.6 F 62 18 147/70 94
10/19/24 11:38 10/19/24 11:46 10/19/24 11:38 10/19/24 11:46 10/19/24 11:38
I&O
10/18/24 10/19/24 10/20/24
06:59 06:59 06:59
Intake Total 240 / 240 3920 / 3920
Output Total 1275 / 1275 2450 / 2450
Balance -1035 / -1035 1470 / 1470
Review of Systems
-
Unable to obtain full review of systems at this time due to: Dementia
History Source: Patient
All other systems: Reviewed and negative
[2024-10-19 15:06] LABS: Magnesium 2.1 mg/dl (1.6-2.3)
[2024-10-19] MEDS: KCL 20 MEQ PO (15:15)
--- NOTE | 2024-10-19 15:49 | W.DS.TRANS ---
DC Summary - Microcomputer Technician
-
Discharge Instructions:
Discharge Diagnosis/Procedures Acute gallstone pancreatitis, iron deficiency
anemia
Diet Low Fat,Low Cholesterol
Activity As tolerated
Driving Restrictions No driving
Bathing Restrictions None
Blood Work CBC next week with your primary care doctor
Instructions:
Stand-Alone Forms:
Changes to Home Medications: No
Discharge Medications:
DC Medications w/original date entered in [employer]
rivaroxaban 20 mg tablet (Xarelto) 20 mg PO QPM #30 tabs 01/19/22
albuterol sulfate 90 mcg/actuation aerosol inhaler 2 puff inhalation R QIDPRN PRN sob 10/15/24
alprazolam 0.5 mg tablet (Xanax) 0.5 mg PO HS anxiety 10/15/24
atorvastatin 40 mg tablet (Lipitor) 20 mg PO QPM High Cholesterol 10/15/24
cholecalciferol (vitamin D3) 25 mcg (1,000 unit) tablet (Vitamin D3) 25 mcg PO DAILY Supplement 10/15/24
furosemide 20 mg tablet (Lasix) 20 mg PO DAILY Fluid Retention/Swelling 10/15/24
losartan 25 mg tablet 25 mg PO DAILY Blood Pressure 10/15/24
memantine 10 mg tablet 10 mg PO HS cognition/memory 10/15/24
metoprolol succinate 25 mg tablet,extended release 24 hr (Toprol XL) 25 mg PO DAILY Blood Pressure 10/15/24
pantoprazole 40 mg tablet,delayed release 40 mg PO DAILY Gastrointestinal Issue 10/15/24
clopidogrel 75 mg tablet 75 mg PO DAILY #30 tabs 10/19/24
duloxetine 20 mg capsule,delayed release 20 mg PO DAILY #0 caps 10/19/24
potassium chloride 20 mEq tablet,extended release(part/cryst) 20 meq PO DAILY #3 tabs 10/19/24
Home Medication Changes
Pending Results: No
== END 2024-10-19 17:51 | disposition home health service (06) | DRG 439 ==
LOC: 2 NORTH 06:43
PROVIDERS: Internal Medicine Gastroenterology; Nurse Practitioner Family; ADMITTING PHYSICIAN Internal Medicine; ATTENDING PHYSICIAN Hospitalist; CONSULT PHYSICIAN Surgery; EMERGENCY PHYSICIAN Emergency Medicine; FAMILY PHYSICIAN Internal Medicine; OTHER PHYSICIAN Internal Medicine Gastroenterology
PROC: 0DJ08ZZ Inspection of Upper Intestinal Tract, Via Natural or Artificial Opening Endoscopic (ICD-10-PCS; 2024-10-19)
PROC: 0DJD8ZZ Inspection of Lower Intestinal Tract, Via Natural or Artificial Opening Endoscopic (ICD-10-PCS; 2024-10-19)
DX: K85.10 Biliary acute pancreatitis without necrosis or infection (principal); F02.83 Dementia in other diseases classified elsewhere, unspecified severity, with mood disturbance; F02.84 Dementia in other diseases classified elsewhere, unspecified severity, with anxiety; I50.32 Chronic diastolic (congestive) heart failure; I47.20 Ventricular tachycardia, unspecified; D50.9 Iron deficiency anemia, unspecified; I25.10 Atherosclerotic heart disease of native coronary artery without angina pectoris; K44.9 Diaphragmatic hernia without obstruction or gangrene; K64.0 First degree hemorrhoids; K57.30 Diverticulosis of large intestine without perforation or abscess without bleeding; F32.A Depression, unspecified; G30.9 Alzheimer's disease, unspecified; I11.0 Hypertensive heart disease with heart failure; E78.00 Pure hypercholesterolemia, unspecified; I25.5 Ischemic cardiomyopathy; I25.2 Old myocardial infarction; K80.20 Calculus of gallbladder without cholecystitis without obstruction; F41.9 Anxiety disorder, unspecified; K21.9 Gastro-esophageal reflux disease without esophagitis; Z85.43 Personal history of malignant neoplasm of ovary; Z79.01 Long term (current) use of anticoagulants; Z79.82 Long term (current) use of aspirin; Z79.899 Other long term (current) drug therapy; F10.21 Alcohol dependence, in remission; Z86.14 Personal history of Methicillin resistant Staphylococcus aureus infection; H91.90 Unspecified hearing loss, unspecified ear; Z95.5 Presence of coronary angioplasty implant and graft; Z90.710 Acquired absence of both cervix and uterus
CPT/HCPCS: 74177; 74183; 76700; 80053; 82077; 82248; 82728; 83540; 83550; 83690; 83735; 84484; 85025; 86140; 87070; 87147; 93005; 96361; 96374; 96375; 97162; 97166; 99285; A9575; J2916; Q9967